=== PATIENT | female | born 1990 | race Caucasian/White ===

== ENCOUNTER 2016-10-14 02:15 | Inpatient (IN) | payer OTHER ==
[2016-10-14] MEDS ORDERED: METHYLERGONOVINE 0.2 MG/ML 1 ML AMP IM PRN (02:30)
[2016-10-14] MEDS ORDERED: CARBOPROST TROMETHAMINE 250 MCG/ML 1 ML AMP IM PRN (02:30)
[2016-10-14] MEDS ORDERED: OXYTOCIN 20 UNITS/1000 ML NS 1,000 ML IV SCH (02:30)
[2016-10-14] MEDS: LACTATED RINGERS 1,000 ML IV SCH ×3 (02:30→11:53)
[2016-10-14] MEDS ORDERED: TERBUTALINE 1 MG/ML VIAL SQ PRN (02:30)
[2016-10-14] MEDS ORDERED: LIDOCAINE 1% (PF) 10 MG/ML (30 ML SDV) SQ PRN (02:30)
[2016-10-14] MEDS ORDERED: OXYTOCIN 10 UNIT/ML 1 ML VIAL IM PRN (02:30)
[2016-10-14] MEDS ORDERED: BUTORPHANOL 1 MG/ML 1 ML VIAL IV PRN (02:40)
[2016-10-14 04:18] LABS: Basophils % (A) 0 %; CH 27.4; Eosinophils # (A) 0.1 k/uL (0-0.7); Eosinophils % (A) 1 %; HCT 34.5 % (34.0-46.0); HDW 2.54; HGB 11.3 gm/dL (11.4-16.0); Luc # (Auto) 0.22; Luc % (Auto) 2; Lymphocytes # (A) 1.8 k/uL (1.0-4.8); Lymphocytes % (A) 13 %; MCH 27.3 pg (25.0-35.0); MCHC 32.8 g/dL (31.0-37.0); MCV 83.3 fL (80.0-100.0); Monocytes # (A) 0.7 k/uL (0-1.0); Monocytes % (A) 5 %; Neutrophils # (A) 10.7 k/uL (1.3-7.7); Neutrophils % (A) 79 %; RBC 4.15 m/uL (3.80-5.40); RDW 14.6 % (11.5-15.5); WBC 13.6 k/uL (3.8-10.6); WBC (Perox) 13.74
--- NOTE | 2016-10-14 09:07 | P.HPOB ---
History of Present Illness H&P Date: 10/14/16 Chief Complaint: 40-3/7 weeks, spontaneous rupture of membranes The patient is a 26-year-old 1 para 0 admitted at 40-3/7 weeks as established by last menstrual period and confirmed by 20 week ultrasound. She is admitted with documented spontaneous rupture of membranes of clear fluid. On admission, all signs reassuring. Her has been uncomplicated though she is rubella nonimmune and was also found to be Rh-, received RhoGAM at 28 weeks. Group B strep status is negative. Obstetrical history 1 para 0 with current statistics listed in history present illness. EDC of 10/11/2016 was established by last menstrual period and confirmed by 20 week ultrasound. Laboratory workup demonstrates a blood type of O- with a negative antibody screen. Rubella status is nonimmune. Remainder of the laboratory workup was within normal limits. Early Glucola was elevated but followed by a normal three-hour glucose tolerance test. Second trimester Glucola was similarly elevated within normal three-hour glucose tolerance test. Group B strep status is negative. Gynecologic history is unremarkable with no history of any infections to include STDs. Review of Systems Review of systems is confined to history of present illness. Past Medical History Past Medical History: No Reported History History of Any Multi-Drug Resistant Organisms: None Reported Past Surgical History: No Surgical Hx Reported Past Anesthesia/Blood Transfusion Reactions: No Reported Reaction Past Psychological History: No Psychological Hx Reported Smoking Status: Never smoker Past Alcohol Use History: None Reported Past Drug Use History: None Reported - Past Family History Mother Family Medical History: No Reported History Medications and Allergies Home Medications Medication Instructions Recorded Confirmed Type Omeprazole Magnesium [Prilosec OTC] 40 mg PO DAILY 10/14/16 10/14/16 History Pnv,Calcium 72/Iron/Folic Acid 1 tab PO DAILY 10/14/16 10/14/16 History [ Plus Tablet] Allergies Allergy/AdvReac Type Severity Reaction Status Date / Time No Known Allergies Allergy Verified 10/14/16 02:29 Exam - Vital Signs Vital signs: Vital Signs Temp Pulse Resp BP Pulse Ox 10/14/16 02:38 97.9 F 88 16 127/85 98 10/14/16 02:34 97.9 F 88 16 127/85 98 Intake and Output 10/13/16 10/14/16 10/14/16 22:59 06:59 14:59 Other: # Voids 1 Weight 100.698 kg In general, this is a well-developed, well-nourished white female in no acute distress. Her heart has a regular rhythm and rate without murmur. Her lungs are clear to auscultation bilaterally in all [place]. Her abdomen is gravid, nondistended, has normal active bowel sounds, is soft, nontender, and without any palpable masses aside from the uterine fundus. Her extremities are without any cyanosis, clubbing, or edema and are nontender to palpation. Digital cervical examination demonstrates her cervix to be 4+ centimeters dilated, 90% effaced, the vertex in presentation at -2 station. Results Result Diagrams: 10/14/16 03:56 Abnormal Lab Results - Last 24 Hours (Table) 10/14/16 Range/Units 03:56 WBC 13.6 H (3.8-10.6) k/uL Hgb 11.3 L (11.4-16.0) gm/dL Neutrophils # 10.7 H (1.3-7.7) k/uL Assessment and Plan (1) Spontaneous rupture of amniotic membranes Status: Acute (2) Active labor at term Status: Acute Plan: The patient has been admitted for active management of labor. She will continue to have close maternal and surveillance and expectant management will be practiced. She has been started on Pitocin and may require antibody prophylaxis as she is approaching rupture of membranes for more than 12 hours and is still somewhat remote from delivery.
[2016-10-14] MEDS ORDERED: fentaNYL (PF) 50 MCG/ML 5 ML AMP ONE (10:27)
[2016-10-14] MEDS ORDERED: BUPIVACAINE (PF) 0.25% 30 ML VIAL ONE (10:27)
[2016-10-14] MEDS ORDERED: SODIUM CHLORIDE 0.9% 100 ML BAG ONE (10:27)
[2016-10-14] MEDS ORDERED: BUPIVACAINE (PF) 0.25% 25 ML, fentaNYL (PF) 200 MCG in SODIUM CHLORIDE 0.9% 71 ML EPIDURAL ONE (11:04)
[2016-10-14] MEDS ORDERED: Acetaminophen-Codeine 300-30mg TAB PO PRN ×2 (15:09)
[2016-10-14] MEDS ORDERED: diphenhydrAMINE 50 MG/ML 1 ML VIAL IVP PRN ×2 (15:09)
[2016-10-14] MEDS ORDERED: SIMETHICONE 80 MG CHEWABLE PO PRN (15:09)
[2016-10-14] MEDS ORDERED: diphenhydrAMINE 50 MG CAP PO PRN (15:09)
[2016-10-14] MEDS ORDERED: MEASLES-MUMPS-RUBELLA VACC/PF 12,500 UNIT/0.5 ML VIAL SQ ONE (15:09)
[2016-10-14] MEDS ORDERED: HYDROCORTISONE 2.5% RECTAL CREAM 30 GM TUBE RECTAL PRN (15:09)
[2016-10-14] MEDS ORDERED: BENZOCAINE/MENTHOL SPRAY 1 GM/SPRAY AEROSOL TOPICAL PRN (15:09)
[2016-10-14] MEDS ORDERED: LANOLIN CREAM 5 GM TUBE TOPICAL PRN (15:09)
[2016-10-14] MEDS ORDERED: WITCH HAZEL 1 EACH MED..PAD TOPICAL PRN (15:09)
[2016-10-14] MEDS ORDERED: ACETAMINOPHEN TAB 325 MG TAB PO PRN (15:09)
[2016-10-14] MEDS ORDERED: ZOLPIDEM 5 MG TAB PO PRN (15:09)
[2016-10-14] MEDS ORDERED: diphenhydrAMINE 25 MG CAP PO PRN (15:09)
[2016-10-14] MEDS ORDERED: IBUPROFEN 600 MG TAB PO PRN (15:09)
--- NOTE | 2016-10-14 15:14 | P.PROBDLV ---
Vaginal Delivery Note - . Vaginal Delivery Note: The patient is a 26-year-old 1 para 0 admitted at 40-3/7 weeks by good dating parameters perches admitted with documented spontaneous rupture of membranes of clear fluid. Her was essentially uncomplicated though she was known to be rubella nonimmune and Rh- and received RhoGAM at 28 weeks. She made relatively slow progress through the latent phase of labor and then had Pitocin augmentation started. I once in the active phase of labor, an epidural catheter was placed for analgesia. She thereafter made steady progress through the active phase to complete and then pushed over the course of approximately 45 minutes to a normal spontaneous vaginal delivery of a viable 8 lbs. 10 oz. baby boy with Apgars of 9 at 1 minute and 9 at 5 minutes delivered in the right occiput anterior position. There was a loose nuchal cord which was reduced following delivery of the infant. The placenta was delivered spontaneously, intact, and grossly normal with a marginally and velamentously inserted three-vessel cord. A second degree midline laceration was noted to occurred during delivery and was repaired in standard fashion using 3-0 chromic catgut without difficulty. Estimated blood loss for the case is approximately 200 mL. There were no complications. All sponge, instrument, and needle counts were correct. Both mother and infant are resting comfortably in recovery.
[2016-10-14] MEDS: SENNOSIDES-DOCUSATE SODIUM 1 EACH TAB PO SCH (21:09)
[2016-10-14] MEDS ORDERED: Rhogam IMMUNE GLOBULIN 1,500 UNIT/1 ML IM ONE (21:45)
[2016-10-15] MEDS: SENNOSIDES-DOCUSATE SODIUM 1 EACH TAB PO SCH (08:00)
--- NOTE | 2016-10-15 09:14 | P.DS ---
Providers Date of admission: 10/14/16 02:28 Expected date of discharge: 10/15/16 Attending physician: Ricardo Teague Primary care physician: Stated None - Discharge Diagnosis(es) (1) Spontaneous rupture of amniotic membranes Current Visit: Yes Status: Acute (2) Active labor at term Current Visit: Yes Status: Acute (3) Normal spontaneous vaginal delivery Current Visit: Yes Status: Acute Hospital Course: The patient is a 26-year-old 1 para 0 admitted at 40-3/7 weeks by good dating parameters. She is admitted with documented spontaneous rupture of membranes. Her was uncomplicated though she was Rh- and also rubella nonimmune. Group B strep status was negative. On labor and delivery, she made relatively slow progress through the latent phase of labor and had Pitocin augmentation started. She had an upper catheter placed at the onset of active phase of labor and progressed steadily to complete where after she pushed to a normal spontaneous vaginal delivery of a viable 8 lbs. 10 oz. baby boy with Apgars of 9 at 1 minute and 9 at 5 minutes. Her course was unremarkable with vital signs remained stable and her temperature was afebrile throughout. She was deemed stable for discharge by day #1 was discharged home to follow-up in the office in 6 weeks' time routinely. Discharge instructions included calling for any significantly increased fever or abdominal pain, perineal complaints, breast complaints, or anything else that concerned her. She is additionally instructed to have nothing in the vagina for at least 6 weeks time to include intercourse. She understood her instructions and agrees follow up as noted above. Discharge medications include only ulyv-gby-skohtmo analgesic pain medications as well as continued vitamins as she has opted to breast-feed. Maternal blood type is O- and rubella status is nonimmune. She therefore was to receive the MMR vaccination prior to discharge. Procedures: #1. Pitocin augmentation #2. Epidural analgesia #3. Normal spontaneous vaginal delivery #4. Repair of perineal laceration Patient Condition at Discharge: Good Plan - Discharge Summary New Discharge Prescriptions: No Action Pnv,Calcium 72/Iron/Folic Acid [ Plus Tablet] 1 tab PO DAILY Omeprazole Magnesium [Prilosec OTC] 40 mg PO DAILY Discharge Medication List Omeprazole Magnesium [Prilosec OTC] 40 mg PO DAILY 10/14/16 [History] Pnv,Calcium 72/Iron/Folic Acid [ Plus Tablet] 1 tab PO DAILY 10/14/16 [ History] Follow up Appointment(s)/Referral(s): Ricardo Teague MD [STAFF PHYSICIAN] - 6 Weeks Discharge Disposition: HOME SELF-CARE
[2016-10-15 13:25] VITALS: BP 111/66; PULSE 95; RESP 18; TEMP 98.5
== END 2016-10-15 16:15 | disposition home or self-care (01) | DRG 775 ==
LOC: FBPOP 02:15 → 4FBP 02:28
PROVIDERS: ADMIT Obstetrics & Gynecology; ATTEND Obstetrics & Gynecology
PROC: 10E0XZZ Delivery of Products of Conception, External Approach (ICD-10-PCS; principal; 2016-10-14)
PROC: 0KQM0ZZ Repair Perineum Muscle, Open Approach (ICD-10-PCS; 2016-10-14)
PROC: 3E0234Z Introduction of Serum, Toxoid and Vaccine into Muscle, Percutaneous Approach (ICD-10-PCS; 2016-10-14)
PROC: 3E00X4Z Introduction of Serum, Toxoid and Vaccine into Skin and Mucous Membranes, External Approach (ICD-10-PCS; 2016-10-14)
PROC: 3E0S3NZ Introduction of Analgesics, Hypnotics, Sedatives into Epidural Space, Percutaneous Approach (ICD-10-PCS; 2016-10-14)
DX: O70.1 Second degree perineal laceration during delivery (principal); Z37.0 Single live birth; O48.0 Post-term pregnancy; O26.893 Other specified pregnancy related conditions, third trimester; O69.81X0 Labor and delivery complicated by cord around neck, without compression, not applicable or unspecified; Z3A.40 40 weeks gestation of pregnancy; Z79.899 Other long term (current) drug therapy; Z23 Encounter for immunization; Z67.40 Type O blood, Rh positive
CPT/HCPCS: 85025; 85461; 88307; 90707